=== PATIENT | male | born 1960 | race Caucasian/White ===

== ENCOUNTER → 2017-03-04 | Outpatient (CLI) | payer BC ==
[2017-03-04 09:47] LABS: CH 29.9; CHCM 34.4; HCT 46.5 % (39.0-53.0); HDW 2.98; HGB 15.5 gm/dL (13.0-17.5); MCH 29.1 pg (25.0-35.0); MCHC 33.3 g/dL (31.0-37.0); MCV 87.5 fL (80.0-100.0); Mean Platelet Volume 8.2; RBC 5.32 m/uL (4.30-5.90); RDW 14.4 % (11.5-15.5); WBC 8.8 k/uL (3.8-10.6)
[2017-03-04 10:21] LABS: Anion Gap 11 mmol/L; Blood Urea Nitrogen 19 mg/dL (9-20); Carbon Dioxide 26 mmol/L (22-30); Chloride 107 mmol/L (98-107); Non-African American GFR(MDRD) >60 (>60 ml/min/1.73 sqM); Potassium 4.7 mmol/L (3.5-5.1); Sodium 144 mmol/L (137-145)
== END | disposition home or self-care (01) ==
LOC: LABPAT 09:27
PROVIDERS: ATTEND Internal Medicine Interventional Cardiology
DX: Z01.812 Encounter for preprocedural laboratory examination (principal); R94.30 Abnormal result of cardiovascular function study, unspecified
CPT/HCPCS: 80051; 82565; 84520; 85027

== ENCOUNTER 2017-03-30 07:45 | Day surgery (SDC) | payer BC ==
[2017-03-28 08:39] VITALS: BMI 29.4
[~2017-03-30 07:45] MED LIST: ALPRAZolam 0.25 MG TAB PO PRN; ALPRAZolam 0.5 MG TAB PO PRN; ASPIRIN 325 MG TAB PO STA; ATORVASTATIN 80 MG TAB PO STA; NITROGLYCERIN SL TABS 0.4 MG TAB SUBLINGUAL PRN; SODIUM CHLORIDE 0.9% 1,000 ML in EMPTY BAG 1 BAG IV ONE
[2017-03-30 08:02] VITALS: PULSE 72; RESP 20; TEMP 97.8
[2017-03-30] MEDS ORDERED: SODIUM CHLORIDE 0.9% 1,000 ML IV ONE (08:58)
[2017-03-30] MEDS ORDERED: MIDAZOLAM 2 MG/2 ML VIAL IV ONE (09:11)
[2017-03-30] MEDS ORDERED: LIDOCAINE 2% INJ 20 MG/ML SQ ONE (09:17)
[2017-03-30] MEDS ORDERED: HEPARIN SODIUM 1,000 UN/ML (10ML VL) IV ONE (09:28)
[2017-03-30] MEDS ORDERED: VERAPAMIL SYRINGE (5 MG/10 ML) INTRAARTER ONE (09:40)
[2017-03-30] MEDS ORDERED: IOHEXOL 350 MG/ML 125ML BOTTLE INJ ONE (09:41)
[2017-03-30] MEDS ORDERED: RX INFO: IV CONTRAST WAS GIVEN 1 EACH MISC MISCELLANE PRN (09:48)
[2017-03-30] MEDS ORDERED: SODIUM CHLORIDE 0.9% 1,000 ML IV SCH (10:00)
--- NOTE | 2017-03-30 10:22 | LTR ---
Date: Dear Valeriano: Mr. Jesse White underwent a heart catheterization today and that showed mild disease involving the RCA and the circumflex with patent stent in the mid RCA. I want to thank you for allowing me to participate in the in his care and please do not hesitate to call if you have any questions or concerns. MMODL / IJN: [id number] /
--- NOTE | 2017-03-30 10:31 | CC ---
CARDIAC CATHETERIZATION REPORT DATE OF SERVICE: 03/30/2017 . PERFORMING PHYSICIAN: Tee Hunt MD, Tender Coordinator. PROCEDURE PERFORMED: 1. Selective right and left coronary angiogram. 2. Left heart catheterization. 3. Left ventriculography. INDICATION: This is a pleasant 56-year-old, male patient who is known to have coronary artery disease with prior stenting of the RCA, was experiencing exertional dyspnea. He underwent myocardial perfusion imaging stress test and that showed anterior ischemia. In view of that, he was brought today to undergo a heart catheterization. APPROACH: Right radial artery. COMPLICATION: None. LEVEL OF SEDATION: Moderate with sedation length of 32 minutes. PROCEDURE DESCRIPTION: After obtaining an informed consent, the patient was brought to the Cardiac Sfdc Architect. The right radial artery was cannulated using micropuncture technique, the micropuncture wire passed easily. Then I placed a 6-Maltese sheath in the right radial artery. Subsequently I gave the patient 2 mg of verapamil IA and 10,000 units of heparin IV. After that, I did selective right and left coronary angiogram using JR4 and JL3.5 Maltese systems. After that, I did left heart catheterization and LV gram, using 5- Maltese pigtail catheter. The procedure was completed without any complication. SELECTIVE CORONARY ANGIOGRAM: 1. The right coronary artery is stented in the mid portion and the stent is patent. The RCA distally has mild disease only. 2. The left main is angiographically normal. It bifurcates into the left circumflex and left anterior descending artery. 3. The left circumflex is a large caliber vessel and it is a nondominant vessel. The left circumflex in the proximal portion gives rise into a large OM branch which has mild disease only. The circumflex after that is angiographically normal. 4. The left anterior descending artery. The proximal LAD appeared to be angiographically normal. It gives rise into a diagonal branch which seems to be angiographically normal. The mid LAD is angiographically normal and the is angiographically normal. 5. Hemodynamics: The left ventricular end-diastolic pressure was 12 mmHg and no gradient was identified across the aortic valve. 6. Left ventriculography was performed in the MCGRATH projection and using a power injection with left ventricular systolic function is normal with an ejection fraction of 55%. CONCLUSION: 1. Patent stent in the mid right coronary artery with mild disease involving the distal right coronary artery which is a dominant vessel. 2. Normal left main coronary artery. 3. Mild disease involving the left circumflex. 4. Normal left anterior descending artery. 5. Normal left ventricular end-diastolic pressure. 6. Normal left ventricular systolic function. POSTPROCEDURE MANAGEMENT: Medical treatment and follow up with the patient. ROSELYN / ARUN: [id number] /
[2017-03-30 17:33] VITALS: BP 128/70
== END 2017-03-30 17:39 | disposition home or self-care (01) ==
LOC: CATHCVL 07:45
PROVIDERS: ATTEND Internal Medicine Interventional Cardiology
DX: I25.10 Atherosclerotic heart disease of native coronary artery without angina pectoris (principal); R06.09 Other forms of dyspnea; I10 Essential (primary) hypertension; E78.5 Hyperlipidemia, unspecified; Z82.49 Family history of ischemic heart disease and other diseases of the circulatory system; Z79.899 Other long term (current) drug therapy; Z87.891 Personal history of nicotine dependence; Z95.5 Presence of coronary angioplasty implant and graft
CPT/HCPCS: 93458; 99152; 99153; C1769; C1894; J2001; J2250; J1644; Q9967

== ENCOUNTER → 2018-06-29 | Outpatient (CLI) | payer BC ==
--- NOTE | 2018-06-29 08:56 | CT ---
EXAMINATION TYPE: CT hand RT wo con DATE OF EXAM: 06/29/2018 COMPARISON: None HISTORY: 57-year-old male Right thumb pain. Prior surgery. TECHNIQUE: Contiguous axial scanning of the right hand without IV contrast. Coronal and sagittal samuel nstructions performed. 3-D reconstructions generated on a dedicated independent workstation. CT DLP: 179.5 mGycm Automated exposure control for dose reduction was used. FINDINGS: There are degenerative changes throughout the hand including the distal radioulnar joint, and through out the carpus, triscaphe joint, and especially at the third and fourth MCP joints with relatively se dc loss of cartilage and joint space at the third MCP joint and joint subluxation. Degenerative elsy nges are characterized by joint space narrowing, marginal spurring, and subcortical/subchondral cysti c change. There is mild degenerative change at the first CMC joint. Additional degenerative change at the DIP j oints particularly the third DIP joint. There is plate and screw fixation across the first MCP joint which appears degenerated and unfused at this time. There are no soft tissue calcifications or synovial calcification seen. No obvious tenosynovitis by C T. IMPRESSION: 1. PLATE AND SCREW FIXATION ACROSS THE FIRST MCP JOINT WHICH APPEARS DEGENERATED AND UNFUSED AT THIS TIME. NO EVIDENT HARDWARE COMPLICATION. 2. ADDITIONAL DEGENERATIVE CHANGES AT THE BASE OF THE THUMB, AT THE DRUJ, THROUGHOUT THE CARPUS, AT S OME OF THE MCP JOINTS AND AT SOME OF THE DIP JOINTS, ESPECIALLY THE THIRD FINGER. DEGENERATIVE CHANGE S ARE CHARACTERIZED BY JOINT SPACE NARROWING, MARGINAL SPURRING, AND SUBCORTICAL/SUBCHONDRAL CYST FOR MATION. UNCLEAR IF THIS RELATES TO OLD INFLAMMATORY ARTHROPATHY GIVEN INVOLVEMENT OF THE CARPUS AND M CP JOINTS OR AN UNUSUAL PATTERN OF OSTEOARTHROSIS. FURTHER CLINICAL CORRELATION RECOMMENDED.
== END ==
LOC: RADCTMAIN 07:08
PROVIDERS: ATTEND Orthopaedic Surgery Hand Surgery
DX: M19.041 Primary osteoarthritis, right hand (principal)

== ENCOUNTER 2023-05-09 05:56 | Day surgery (SDC) | payer OTHER ==
[2023-05-09] MEDS ORDERED: ASPIRIN 325 MG TAB PO STA (06:02)
[2023-05-09] MEDS ORDERED: NITROGLYCERIN SL TABS 0.4 MG TAB SUBLINGUAL PRN ×2 (06:02→08:26)
[2023-05-09] MEDS ORDERED: HEPARIN SODIUM,PORCINE 10,000 UNIT in SODIUM CHLORIDE 0.9% 1,000 ML IRRIGATION PRN (06:02)
[2023-05-09] MEDS ORDERED: HEPARIN SODIUM,PORCINE (1 ML) 2,500 UNIT in SODIUM CHLORIDE 0.9% 250 ML IRRIGATION PRN (06:02)
[2023-05-09] MEDS ORDERED: ALPRAZolam 0.5 MG TAB PO PRN (06:02)
[2023-05-09] MEDS ORDERED: ALPRAZolam 0.25 MG TAB PO PRN (06:02)
[2023-05-09] MEDS ORDERED: ATORVASTATIN 80 MG TAB PO STA (06:02)
[2023-05-09] MEDS: SODIUM CHLORIDE 0.9% 1,000 ML in EMPTY BAG 1 BAG IV SCH ×2 (06:30→17:32)
[2023-05-09 06:35] LABS: Basophils % (A) 0 %; Eosinophils # (A) 0.2 k/uL (0-0.7); Eosinophils % (A) 2 %; HCT 40.4 % (39.0-53.0); HGB 13.5 gm/dL (13.0-17.5); Lymphocytes # (A) 2.7 k/uL (1.0-4.8); Lymphocytes % (A) 26 %; MCH 29.5 pg (25.0-35.0); MCHC 33.5 g/dL (31.0-37.0); MCV 88.2 fL (80.0-100.0); Mean Platelet Volume 7.8; Monocytes # (A) 0.5 k/uL (0-1.0); Monocytes % (A) 5 %; Neutrophils # (A) 6.7 k/uL (1.3-7.7); Neutrophils % (A) 65 %; Platelet Count 289 k/uL (150-450); RBC 4.58 m/uL (4.30-5.90); RDW 13.3 % (11.5-15.5); WBC 10.3 k/uL (3.8-10.6)
[2023-05-09 06:47] LABS: African American GFR (CKD) >90 (>60 ml/min/1.73 sqM); Anion Gap 8 mmol/L; Blood Urea Nitrogen 30 mg/dL (9-20); Calcium 9.1 mg/dL (8.4-10.2); Carbon Dioxide 24 mmol/L (22-30); Chloride 106 mmol/L (98-107); Glucose 102 mg/dL (74-99); Non-African American GFR(CKD) >90 (>60 ml/min/1.73 sqM); Potassium 3.9 mmol/L (3.5-5.1); Sodium 138 mmol/L (137-145)
[2023-05-09] MEDS ORDERED: LIDOCAINE 1% INJ 10MG/ML (20 ML MDV) ONE (07:14)
[2023-05-09] MEDS ORDERED: VERAPAMIL 2.5 MG/ML 2 ML AMP ONE (07:14)
[2023-05-09] MEDS ORDERED: HEPARIN SODIUM 1,000 UN/ML (10ML VL) ONE (07:29)
[2023-05-09] MEDS ORDERED: MIDAZOLAM 2 MG/2 ML VIAL IVP ONE (07:35)
[2023-05-09] MEDS ORDERED: LIDOCAINE 2% (PF) 20 MG/ML 5 ML VIAL SQ ONE (07:38)
[2023-05-09] MEDS ORDERED: VERAPAMIL SYRINGE (5 MG/10 ML) INTRAARTER ONE (07:42)
[2023-05-09] MEDS: HEPARIN SODIUM 1,000 UN/ML (10ML VL) IV ONE ×3 (07:44→08:24)
[2023-05-09] MEDS ORDERED: niCARdipine 25 MG/10 ML VIAL ONE (08:08)
[2023-05-09] MEDS: NITROGLYCERIN 1000MCG/10ML SYRINGE INTRACORON ONE ×2 (08:09→08:19)
[2023-05-09] MEDS ORDERED: niCARdipine Syringe (1,000 mcg/10 mL) INTRACORON ONE (08:10)
[2023-05-09] MEDS ORDERED: IOPAMIDOL-370 100ML BTL INJ ONE ×2 (08:21)
[2023-05-09] MEDS ORDERED: HYDROcodone/APAP 7.5-325MG 1 EACH TAB PO PRN (08:25)
[2023-05-09] MEDS ORDERED: ALBUTEROL NEBULIZED 2.5 MG/3 ML INHALATION PRN (08:25)
[2023-05-09] MEDS ORDERED: diphenhydrAMINE 50 MG CAP PO PRN (08:25)
[2023-05-09] MEDS ORDERED: IPRATROPIUM 0.5 MG/2.5 ML NEBU INHALATION PRN (08:25)
[2023-05-09] MEDS ORDERED: MAG HYDROX/AL HYDROX/SIMETH 30 ML CUP PO PRN (08:26)
[2023-05-09] MEDS ORDERED: ZOLPIDEM 5 MG TAB PO PRN (08:26)
[2023-05-09] MEDS ORDERED: ATROPINE SULFATE 0.1 MG/ML 10ML SYRINGE IV PRN (08:26)
[2023-05-09] MEDS ORDERED: RX INFO: IV CONTRAST WAS GIVEN 1 EACH MISC MISCELLANE PRN (08:26)
[2023-05-09] MEDS ORDERED: SODIUM CHLORIDE 0.9% 1,000 ML in EMPTY BAG 1 BAG IV SCH (08:30)
--- NOTE | 2023-05-09 08:32 | P.PCN ---
Date of Procedure: 05/09/23 Operative Findings: CARDIAC CATHETERIZATION AND PERCUTANEOUS CORONARY INTERVENTION PERFORMING PHYSICIAN: Tee Hunt MD, [facility] PROCEDURE PERFORMED: 1. Selective right and left coronary angiogram 2. Left heart catheterization 3. Successful stenting of distal RCA using 3.0 x 18 mm Xience EDI with an excellent angiographic results 4. Successful balloon angioplasty of the mid RCA using 3.5 mm noncompliant balloon with an excellent angiographic results 5. Adjunctive use of intravascular imaging INDICATION: The patient is a 62-year-old gentleman with CAD and prior stenting of the RCA a nd LCx and LAD who underwent recently myocardial perfusion imaging stress a showed moderate area of reversibility inferiorly and he was experiencing symptoms of shortness of breath with exertion COMPLICATION: None APPROACH: Right radial artery LEVEL OF SEDATION: Moderate with the sedation time off 45 minutes PROCEDURE DESCRIPTION: After obtaining an informed consent the patient was brought to the cardiac crown and bridge dental lab technician. The right radial artery was cannulated using micropuncture technique under ultrasound guidance and the micropuncture wire passed easily then I placed 6- Bhutanese sheath at the right radial artery. I gave the patient 2 mg of verapamil intra-arterial and 5000 use of heparin intravenous. Selective right and left coronary angiogram performed using JR4 and JL 3.5 catheters and left heart catheterization was performed using 6-Bhutanese pigtail catheter. After that I did intervene on the right coronary artery. The procedure was completed was no complication SELECTIVE CORONARY ANGIOGRAM: The right coronary artery: Large caliber vessel and a dominant vessel with diet in-stent restenosis and also tight lesion distally appeared to be de nishant lesion Left main: Has mild disease only. Bifurcates into one LCx and LAD The left circumflex: Large caliber vessel. Proximally gives rise into an OM which is a large caliber vessel stented and the stent is patent. Distally gives rises into an oh into which appeared to be angiographically normal The left anterior descending artery: Large caliber vessel. The LAD stented in the midportion and the stent is patent HEMODYNAMICS: The LVEDP was 12 mmHg was no significant gradient across aortic valve PCI OF THE RCA: Anticoagulation was initiated using heparin with continuous ACT monitoring. Engaging the right was performed using JR4 guiding catheter. I did wire it using a run-through wire. Intravascular ultrasound was performed and showed a diameter of the RCA about 3 mm distally and 3.5 in the midportion. The artery wasn't very calcified. Predilatation was performed using 3 mm noncompliant balloon distally then I deployed 30 by 18 mm stent distally. After that I did direct irritation of the stent in the mid LAD using 3.5 mm noncompliant balloon. Final angiogram showed excellent angiographic results and the procedure was completed was no complication CONCLUSION: Severe in-stent restenosis of the RCA and severe disease involving de nishant lesion in the RCA as well. I performed successful balloon angioplasty and st enting as described above Patent stent in the first obtuse marginal branch of the left circumflex Patent stent in the LAD Normal left-sided filling pressure POSTPROCEDURE MANAGEMENT: 1. Dual antiplatelet therapy using aspirin and Effient for at least 6 month 2. Aggressive cholesterol control 3. Follow-up with the patient
[2023-05-09] MEDS ORDERED: NON FORMULARY DRUG (Magnesium Citrate [Magnesium Citrate] 125 MG Capsule) PO SCH (09:00)
[2023-05-09] MEDS ORDERED: NON FORMULARY DRUG (Turmeric Root Extract [Turmeric] 500 MG Tablet) PO SCH (09:00)
[2023-05-09] MEDS ORDERED: NON FORMULARY DRUG (Omega-3 Acid Ethyl Esters [Lovaza] 1 GM Capsule) PO SCH (09:00)
[2023-05-09] MEDS ORDERED: NON FORMULARY DRUG (Glucosam/Chon-Msm1/C/Mang/Bosw [Glucosamine-Chondroitin-Msm Tb] 1 EACH PO SCH (09:00)
[2023-05-09] MEDS ORDERED: PRASUGREL 10 MG TAB PO SCH (09:00)
[2023-05-09] MEDS: ASCORBIC ACID 500 MG TAB PO SCH ×2 (10:29→20:04)
[2023-05-09] MEDS: MULTIVITAMINS, THERA 1 EACH TAB PO SCH (10:29)
[2023-05-09] MEDS: ISOSORBIDE MONONITRATE ER 30 MG TAB.ER.24H PO SCH (10:29)
[2023-05-09] MEDS: CYANOCOBALAMIN 500 MCG TAB PO SCH (10:29)
[2023-05-09] MEDS: amLODIPine 5 MG TAB PO SCH (10:29)
[2023-05-09] MEDS: ZINC SULFATE 220 MG CAP PO SCH (10:29)
[2023-05-09] MEDS: CHOLECALCIFEROL 25 MCG (1000 IU) TABLET PO SCH (10:29)
[2023-05-09] MEDS: VITAMIN E (DL,TOCOPHERYL ACET) 400 UNIT (180 MG) CAP PO SCH (10:30)
[2023-05-09] MEDS: ASPIRIN 81 MG PO SCH (10:30)
[2023-05-09] MEDS: SYMBICORT 80-4.5 MCG INHALER INHALATION SCH ×2 (13:49→21:04)
[2023-05-09] MEDS ORDERED: NORTRIPTYLINE 25 MG CAP PO SCH (21:00)
[2023-05-09] MEDS ORDERED: ACETAMINOPHEN TAB 500 MG TAB PO SCH (21:00)
[2023-05-09] MEDS ORDERED: EZETIMIBE 10 MG TAB PO SCH (21:00)
[2023-05-09] MEDS ORDERED: MONTELUKAST 10 MG TAB PO SCH (21:00)
[2023-05-10] MEDS: SODIUM CHLORIDE 0.9% 1,000 ML in EMPTY BAG 1 BAG IV SCH (04:55)
[2023-05-10 07:28] LABS: African American GFR (CKD) >90 (>60 ml/min/1.73 sqM); Non-African American GFR(CKD) >90 (>60 ml/min/1.73 sqM)
[2023-05-10 07:45] VITALS: BP 117/69; PULSE 68; RESP 17; TEMP 97.6
--- NOTE | 2023-05-10 08:27 | P.DS ---
Providers Attending physician: Tee Hunt Consults: 05/09/23 08:26 Consult Physician Routine Consulting Provider: [facility] Consult Reason/Comments: Post Interventional patient Do you want consulting provider notified?: Already Contacted Primary care physician: Valeriano [facility] Course: The patient is a pleasant 62-year-old gentleman who underwent yesterday successful stenting of the right coronary artery with a good angiographic results and was no complication. The patient was seen and evaluated this morning. He is asymptomatic and he is hemodynamically stable. The patient is going to be discharged home on dual antiplatelet therapy. I will follow-up with the patient next week in the office Plan - Discharge Summary Discharge Rx Participant: No New Discharge Prescriptions: Continue Hydrocodone/Acetaminophen [Garden 7.5-325] 1 tab PO Q8H PRN PRN Reason: Pain Cholecalciferol [Vitamin D3 (25 Mcg = 1000 Iu)] 2,000 unit PO DAILY Budesonide/Formoterol Fumarate [Symbicort 80-4.5 Mcg Inhaler] 2 puff INHALATION BID Albuterol Sulfate [Proair Respiclick] 1 puff PO Q4H PRN PRN Reason: Shortness Of Breath Aspirin [Adult Low Dose Aspirin EC] 81 mg PO DAILY amLODIPine [Norvasc] 5 mg PO DAILY Magnesium Citrate 250 mg PO DAILY Cyanocobalamin (Vitamin B-12) [Vitamin B-12] 1,000 mcg PO DAILY Zinc Gluconate [Zinc] 1 tab PO DAILY Tiotropium 2.5 Mcg/Puff [Spiriva Respimat 2.5 Mcg] 4 puff INHALATION DAILY PRN PRN Reason: Shortness Of Breath Ezetimibe [Zetia] 10 mg PO HS Ascorbic Acid [Vitamin C] 1,000 mg PO BID Isosorbide Mononitrate [Isosorbide Mononitrate ER] 30 mg PO DAILY Glucosam/Suhail-Msm1/C/Edgar/Bosw [Havqjequoiw-Oavlgfkhnjd-RVH Tb] 1 each PO BID [place]-3 Acid Ethyl Esters [Lovaza] 1 gm PO BID Acetaminophen [Tylenol Arthritis] 1,300 mg PO HS diphenhydrAMINE [Benadryl] 50 mg PO HS PRN PRN Reason: Insomnia Montelukast Sodium [Singulair] 10 mg PO HS Turmeric Root Extract [Turmeric] 500 mg PO DAILY Multivitamins, Thera [Multivitamin (formulary)] 1 tab PO DAILY Ibuprofen 600 mg PO BID PRN PRN Reason: Pain Prasugrel [Effient] 10 mg PO DAILY #90 tablet Vitamin E (Dl,Tocopheryl Acet) [Vitamin E (400 Iu = 180 mg)] 400 unit PO DAILY Nortriptyline HCl [Pamelor] 75 mg PO HS Discharge Medication List Cholecalciferol [Vitamin D3 (25 Mcg = 1000 Iu)] 2,000 unit PO DAILY 03/03/16 [History] Hydrocodone/Acetaminophen [Garden 7.5-325] 1 tab PO Q8H PRN 03/03/16 [History] Albuterol Sulfate [Proair Respiclick] 1 puff PO Q4H PRN 03/28/17 [History] Aspirin [Adult Low Dose Aspirin EC] 81 mg PO DAILY 03/28/17 [History] Budesonide/Formoterol Fumarate [Symbicort 80-4.5 Mcg Inhaler] 2 puff INHALATION BID 03/28/17 [History] Cyanocobalamin (Vitamin B-12) [Vitamin B-12] 1,000 mcg PO DAILY 04/28/17 [History] Magnesium Citrate 250 mg PO DAILY 04/28/17 [History] amLODIPine [Norvasc] 5 mg PO DAILY 04/28/17 [History] Ascorbic Acid [Vitamin C] 1,000 mg PO BID 08/06/22 [History] Ezetimibe [Zetia] 10 mg PO HS 08/06/22 [History] Ibuprofen 600 mg PO BID PRN 08/06/22 [History] Montelukast Sodium [Singulair] 10 mg PO HS 08/06/22 [History] Multivitamins, Thera [Multivitamin (formulary)] 1 tab PO DAILY 08/06/22 [History] Tiotropium 2.5 Mcg/Puff [Spiriva Respimat 2.5 Mcg] 4 puff INHALATION DAILY PRN 08/06/22 [History] Turmeric Root Extract [Turmeric] 500 mg PO DAILY 08/06/22 [History] Zinc Gluconate [Zinc] 1 tab PO DAILY 08/06/22 [History] diphenhydrAMINE [Benadryl] 50 mg PO HS PRN 08/06/22 [History] Prasugrel [Effient] 10 mg PO DAILY #90 tablet 08/10/22 [Rx] Isosorbide Mononitrate [Isosorbide Mononitrate ER] 30 mg PO DAILY 08/17/22 [History] Acetaminophen [Tylenol Arthritis] 1,300 mg PO HS 05/05/23 [History] Glucosam/Suhail-Msm1/C/Edgar/Bosw [Ellceedgwwy-Tfayrqrhlbf-LDZ Tb] 1 each PO BID 05/05/23 [History] Nortriptyline HCl [Pamelor] 75 mg PO HS 05/05/23 [History] [place]-3 Acid Ethyl Esters [Lovaza] 1 gm PO BID 05/05/23 [History] Vitamin E (Dl,Tocopheryl Acet) [Vitamin E (400 Iu = 180 mg)] 400 unit PO DAILY 05/05/23 [History] Follow up Appointment(s)/Referral(s): Tee Hunt MD [STAFF PHYSICIAN] - 1 Week Patient Instructions/Handouts: Moderate Sedation (DC), After Radial Heart Catheterization (GEN) Activity/Diet/Wound Care/Special Instructions: NO DRIVING FOR TWO DAYS. OK TO SHOWER TOMORROW BUT NO BATHS, SWIMMING, SOAKING PUNCTURE SITE IN STANDING WATER (IE:DOING DISHES) FOR FIVE DAYS TO AVOID RISK OF INFECTION. SIGNS OF INFECTION IE: FEVER, RASH, UNUSUAL SWELLING OR HARD KNOT, DRAINAGE FROM SITE CONTACT DOCTOR TO BE EVAULATED. IF PUNCTURE SITE BLEEDS, APPLY FIRM DIRECT PRESSURE AND GO TO ER. DO NOT DRIVE SELF. MEDICATION DIRECTED BY PROVISIONING ANALYST. NO LIFTING GREATER THAN 5 LBS FOR FIVE DAYS, AVOID PUSHING PULLING FOR FIVE DAYS ALSO.
[2023-05-10] MEDS: ZINC SULFATE 220 MG CAP PO SCH (08:50)
[2023-05-10] MEDS: MULTIVITAMINS, THERA 1 EACH TAB PO SCH (08:50)
[2023-05-10] MEDS: VITAMIN E (DL,TOCOPHERYL ACET) 400 UNIT (180 MG) CAP PO SCH (08:50)
[2023-05-10] MEDS: CHOLECALCIFEROL 25 MCG (1000 IU) TABLET PO SCH (08:50)
[2023-05-10] MEDS: ISOSORBIDE MONONITRATE ER 30 MG TAB.ER.24H PO SCH (08:50)
[2023-05-10] MEDS: CYANOCOBALAMIN 500 MCG TAB PO SCH (08:50)
[2023-05-10] MEDS: ASCORBIC ACID 500 MG TAB PO SCH (08:50)
[2023-05-10] MEDS: amLODIPine 5 MG TAB PO SCH (08:50)
[2023-05-10] MEDS: ASPIRIN 81 MG PO SCH (08:50)
[2023-05-10] MEDS: SYMBICORT 80-4.5 MCG INHALER INHALATION SCH (09:06)
== END 2023-05-10 09:45 | disposition home or self-care (01) ==
LOC: CATHCVL 05:56 → 6NMEDSUR 08:35 → CATHCVL 05-10 09:45
PROVIDERS: ATTEND Internal Medicine Interventional Cardiology
DX: I25.10 Atherosclerotic heart disease of native coronary artery without angina pectoris (principal); I10 Essential (primary) hypertension; E78.5 Hyperlipidemia, unspecified; Z95.5 Presence of coronary angioplasty implant and graft; Z79.899 Other long term (current) drug therapy; Z79.1 Long term (current) use of non-steroidal anti-inflammatories (NSAID)
CPT/HCPCS: 94640; 92978; 93458; 76937; 80048; 82565; 85025; 99152; 99153 ×2; C9600; C1887; C1769 ×2; C1894; C1753; C1874; C1725 ×2; J2250; J1644; Q9967; J2001; J2305

== ENCOUNTER → 2023-09-12 | Outpatient (CLI) | payer OTHER ==
--- NOTE | 2023-09-12 11:28 | CT ---
Exam: CT Chest without contrast. Date: 09/12/2023. Comparison: None History: Cough and congestion. Technique: CT examination of the chest was performed without contrast. Coronal and sagittal reformats were performed. CT dose lowering techniques were used, to include: automated exposure control, adjus tment for patient size, and/or use of iterative reconstruction. FINDINGS: Mediastinum and Rosio: There is no axillary, mediastinal or hilar lymphadenopathy. Pleural and Pericardial spaces: There are no pleural or pericardial effusions. Upper Abdomen: There is mild diffuse decreased attenuation of liver disease compatible fatty liver in filtration. Left adrenal nodule is compatible with an adenoma measuring 2.5 cm in diameter. The right adrenal adenoma. Cardiovascular: The thoracic aorta is normal in size. There are moderate patchy coronary artery calci fications. Lung Parenchyma and Airways: There is mild upper lobe predominant centrilobular and paraseptal emphys maged. The lungs otherwise appear clear. Bones: No fracture or aggressive osseous lesion. IMPRESSION: 1. No acute abnormality in the chest. 2. Mild emphysema. 3. Bilateral adrenal adenomas. 4. Hepatic steatosis. 5. Coronary artery calcifications. There also appears to be coronary stents.
== END | disposition home or self-care (01) ==
LOC: RADCTMAIN 08:08
PROVIDERS: ATTEND Internal Medicine
DX: D35.01 Benign neoplasm of right adrenal gland (principal); D35.02 Benign neoplasm of left adrenal gland; I25.10 Atherosclerotic heart disease of native coronary artery without angina pectoris; K76.0 Fatty (change of) liver, not elsewhere classified; J43.2 Centrilobular emphysema; R05.3 Chronic cough; R06.02 Shortness of breath; R09.89 Other specified symptoms and signs involving the circulatory and respiratory systems
CPT/HCPCS: 71250

== ENCOUNTER → 2023-10-28 | Outpatient (CLI) | payer OTHER ==
[2023-10-28 23:51] LABS: Alternaria alternata IgE <0.10 kU/L; Aspergillus fumagatus IgE <0.10 kU/L; Birch IgE 0.15 kU/L; Cat Epith & Dander IgE <0.10 kU/L; Cladosporian herbarum IgE <0.10 kU/L; Cockroach IgE <0.10 kU/L; Dermato. farinae IgE <0.10 kU/L; Dog Dander IgE <0.10 kU/L; Elm IgE 0.28 kU/L; Maple (Box Elder) IgE 1.49 kU/L; Ragweed,Common IgE 0.78 kU/L; Red Top (Bentgrass) IgE 3.96 kU/L
== END | disposition home or self-care (01) ==
LOC: LABWHC1 09:47
PROVIDERS: ATTEND Internal Medicine Critical Care Medicine
DX: R06.09 Other forms of dyspnea (principal)
CPT/HCPCS: 36415; 82785; 85008; 86003

== ENCOUNTER → 2023-11-14 | Day surgery (SDC) | payer OTHER ==
[2023-11-11 09:57] VITALS: BMI 31.9
[~2023-11-14] MED LIST changes: -ALPRAZolam 0.25 MG TAB PO PRN; -ALPRAZolam 0.5 MG TAB PO PRN; -ASPIRIN 325 MG TAB PO STA; -ATORVASTATIN 80 MG TAB PO STA; +LIDOCAINE 1% INJ 10MG/ML (20 ML MDV) ONE; +MIDAZOLAM 2 MG/2 ML VIAL ONE; -NITROGLYCERIN SL TABS 0.4 MG TAB SUBLINGUAL PRN; +PROPOFOL 10 MG/ML 20 ML VIAL IV ONE; -SODIUM CHLORIDE 0.9% 1,000 ML in EMPTY BAG 1 BAG IV ONE; +fentaNYL (PF) 50 MCG/ML 2 ML AMP ONE
[2023-11-14 11:53] LABS: Glucose,Whole Blood 133 mg/dL (70-110)
[2023-11-14 11:56] VITALS: TEMP 97.2
[2023-11-14] MEDS: LACTATED RINGERS 1,000 ML IV SCH (11:58)
--- NOTE | 2023-11-14 12:37 | P.PCN ---
Date of Procedure: 11/14/23 Preoperative Diagnosis: Shortness of breath Occupational lung disease, possible asthma Postoperative Diagnosis: Tracheobronchomalacia Copious respiratory secretions and mucous retention/plugging Procedure(s) Performed: Bronchoscopy, airway inspection, therapeutic airway suctioning, bronchoalveolar lavage Anesthesia: MAC Surgeon: George Bragg Estimated Blood Loss (ml): 0 Pathology: other Condition: stable Disposition: same day Operative Findings: This is a flexible bronchoscopy that was done in the endoscopy suite. The patient was placed on a fullface mask with 10 L of oxygen. Anesthetic agent was being administered by anesthesia at the bedside. After achieving adequate sedation, the flexor bronchoscope was introduced through the right nostril and it was advanced into the upper airway. Examination of the upper airway showed collapsibility of the upper airways consistent with obstructive sleep apnea. This was dynamic obstruction. The posterior oropharynx, larynx, epiglottis, vallecula and the vocal cords were all within normal limits. A total of 2 cc of 1% lidocaine was applied to the vocal cord and following that the bronchoscope was passed into the upper trachea. Immediately, it was obvious that the patient had severe tracheomalacia with dynamic obstruction and near complete occlusion of the airway/narrowing of the tracheal lumen upon exhalation and coughing. There was copious amount of respiratory secretions that were creamy beige in color that was encountered throughout the trachea and more secretions were present in the lower lobes bilaterally. Therapeutic airway suctioning was done. Mucous plugs were taken out without any major difficulties. Airway inspection was completed and the visualized airways include the bilateral mainstem bronchi, right upper lobe bronchus, bronchus diabetes, right middle and right lower lobe bronchus the lungs with a very send segments on the right and examination of the left and throughout the left upper lobe bronchus and left lower lobe bronchus and the various 8 segments on the left. As mentioned, there was copious amount of mucus bloody respiratory secretions that were suctioned out. There was tracheobronchomalacia involving the entire airways. No mucosal abnormalities. No evidence of endobronchial tumors or foreign bodies. After completing the therapeutic airway suctioning, the bronchoscope was advanced to the right lower lobe and a bronchial lavage was done. A total of 60 cc of fluid was infused and 30 cc were aspirated or other major difficulties. The patient tolerated the procedure well. Bronchoscope was removed and the patient was transferred to recovery in stable condition. The bronchial lavage from the right lower lobe will be sent for microbial cultures and analysis.
[2023-11-14 13:29] VITALS: BP 106/67; PULSE 83; RESP 20
[2023-11-14 13:32] LABS: Glucose,Whole Blood 125 mg/dL (70-110)
[2023-11-15 04:41] LABS: Appearance,BF Cloudy (Clear); RBC, Body Fluid 2625 /UL (0-2000)
[2023-11-15 11:25] LABS: Nucleated Cells, Body Fluid 713 /UL
== END ==
LOC: ORWHC2ENDO 11:01
PROVIDERS: ATTEND Internal Medicine Critical Care Medicine
DX: J39.8 Other specified diseases of upper respiratory tract (principal)
CPT/HCPCS: 87798 ×3; 87496; 87498; 87529; 88108; 88305; 89050; 87502; 87634; 87070; 87205; 87116; 87102; 87077; 87186; 87206; 87635; 31624; J2250; J2001; J3010; J2704

== ENCOUNTER 2023-11-17 18:54 | Emergency (ER) | payer OTHER ==
[2023-11-17 19:25] VITALS: TEMP 97.6
[2023-11-17 20:12] LABS: Basophils % (A) 0 %; Eosinophils % (A) 0 %; HCT 42.4 % (39.0-53.0); HGB 13.6 gm/dL (13.0-17.5); Lymphocytes # (A) 1.9 k/uL (1.0-4.8); Lymphocytes % (A) 10 %; MCH 28.7 pg (25.0-35.0); MCHC 32.1 g/dL (31.0-37.0); MCV 89.4 fL (80.0-100.0); Mean Platelet Volume 7.9; Monocytes % (A) 5 %; Neutrophils # (A) 15.6 k/uL (1.3-7.7); Neutrophils % (A) 84 %; Platelet Count 279 k/uL (150-450); RBC 4.74 m/uL (4.30-5.90); RDW 13.1 % (11.5-15.5); WBC 18.7 k/uL (3.8-10.6)
[2023-11-17 20:23] LABS: ALT 56 U/L (4-49); AST 31 U/L (17-59); African American GFR (CKD) >90 (>60 ml/min/1.73 sqM); Albumin 4.3 g/dL (3.5-5.0); Alkaline Phosphatase 75 U/L (38-126); Anion Gap 11 mmol/L; Blood Urea Nitrogen 38 mg/dL (9-20); Calcium 9.4 mg/dL (8.4-10.2); Carbon Dioxide 20 mmol/L (22-30); Chloride 103 mmol/L (98-107); Glucose 235 mg/dL (74-99); Non-African American GFR(CKD) >90 (>60 ml/min/1.73 sqM); Potassium 4.8 mmol/L (3.5-5.1); Sodium 134 mmol/L (137-145); Total Bilirubin 0.6 mg/dL (0.2-1.3); Total Protein 6.9 g/dL (6.3-8.2)
--- NOTE | 2023-11-17 20:27 | ED ---
Head Injury HPI - General Chief complaint: Head Injury Stated complaint: head injury Time Seen by Provider: 11/17/23 19:22 Source: patient, RN notes reviewed Mode of arrival: ambulatory Limitations: no limitations - History of Present Illness Initial comments: 62-year-old male on Effient presenting with back pain status post trauma injury involving 400 pound metal sheet falling onto his middle back and head 3 hours ago. States the metal sheet was leaning up against the wall and he was painting at, however it fell onto his mid back while he was laying down and also struck his forehead. He did not lose consciousness. States he is having mid back pain and tenderness however denies any numbness or tingling of the extremities. He is able to weight-bear. Denies vision changes, weakness, numbness, tingling. Denies other injuries. He is concerned for internal bleed due to the weight of the metal sheet. States he has old bruises diffusely across his body since being on the Effient - Related Data Home Medications Medication Instructions Recorded Confirmed Cholecalciferol [Vitamin D3 (25 2,000 unit PO DAILY 03/03/16 11/14/23 Mcg = 1000 Iu)] Hydrocodone/Acetaminophen [[place] 1 tab PO Q8H PRN 03/03/16 11/14/23 7.5-325] Albuterol Sulfate [Proair 1 puff PO Q4H PRN 03/28/17 11/14/23 Respiclick] Aspirin [Adult Low Dose Aspirin EC] 81 mg PO DAILY 03/28/17 11/14/23 Budesonide/Formoterol Fumarate 2 puff INHALATION BID 03/28/17 11/14/23 [Symbicort 80-4.5 Mcg Inhaler] Cyanocobalamin (Vitamin B-12) 1,000 mcg PO DAILY 04/28/17 11/14/23 [Vitamin B-12] Magnesium Citrate 250 mg PO DAILY 04/28/17 11/14/23 amLODIPine [Norvasc] 5 mg PO DAILY 04/28/17 11/14/23 Ascorbic Acid [Vitamin C] 1,000 mg PO BID 08/06/22 11/14/23 Ezetimibe [Zetia] 10 mg PO HS 08/06/22 11/14/23 Ibuprofen 600 mg PO BID PRN 08/06/22 11/14/23 Montelukast Sodium [Singulair] 10 mg PO HS 08/06/22 11/14/23 Multivitamins, Thera [Multivitamin 1 tab PO DAILY 08/06/22 11/14/23 (formulary)] Tiotropium 2.5 Mcg/Puff [Spiriva 4 puff INHALATION DAILY PRN 08/06/22 11/14/23 Respimat 2.5 Mcg] Turmeric Root Extract [Turmeric] 500 mg PO DAILY 08/06/22 11/14/23 Zinc Gluconate [Zinc] 1 tab PO DAILY 08/06/22 11/14/23 diphenhydrAMINE [Benadryl] 50 mg PO HS PRN 08/06/22 11/14/23 Isosorbide Mononitrate [Isosorbide 30 mg PO DAILY 08/17/22 11/14/23 Mononitrate ER] Acetaminophen [Tylenol Arthritis] 1,300 mg PO HS 05/05/23 11/14/23 Glucosam/Suhail-Msm1/C/Edgar/Bosw 1 each PO BID 05/05/23 11/14/23 [Hgwxojfnlbx-Byopxwnibug-DXI Tb] Nortriptyline HCl [Pamelor] 75 mg PO HS 05/05/23 11/14/23 Mcclure-3 Acid Ethyl Esters [Lovaza] 1 gm PO BID 05/05/23 11/14/23 Vitamin E (Dl,Tocopheryl Acet) 400 unit PO DAILY 05/05/23 11/14/23 [Vitamin E (400 Iu = 180 mg)] predniSONE [Deltasone] 20 mg PO DAILY 11/11/23 11/14/23 Previous Rx's Medication Instructions Recorded Prasugrel [Effient] 10 mg PO DAILY #90 tablet 08/10/22 Allergies/Adverse reactions: Allergies Allergy/AdvReac Type Severity Reaction Status Date / Time venom-honey bee Allergy Swelling Verified 11/17/23 19:18 [bee venom (honey bee)] Review of Systems ROS Statement: Those systems with pertinent positive or pertinent negative responses have been documented in the HPI. ROS Other: All systems not noted in ROS Statement are negative. Past Medical History Past Medical History: Asthma, Coronary Artery Disease (CAD), Chest Pain / Angina , Hyperlipidemia, Hypertension, Osteoarthritis (OA), Seizure Disorder Additional Past Medical History / Comment(s): seizure 1998 post closed head injury, no meds now. Allergy induced asthma, chest pain on exertion. SINUS PROBLEMS. cough since he has been on inhalers. scattered bruises History of Any Multi-Drug Resistant Organisms: None Reported Past Surgical History: Heart Catheterization With Stent, Hernia Repair, Ort hopedic Surgery Additional Past Surgical History / Comment(s): vasectomy, desire carpal tunnel, arthroscopy desire knees, tendon repair desire elbows, bone spur removed from left great toe, arthroscopy left shoulder x 2, ganglion cyst left wrist. RT SHOULDER SX, BILAT ING. HERNIA SX,x3 COLONOSCOPY, sinus surgery, rt thumb joint fusion, then had bone graft due to poor healing. rt middle finger joint replacement Past Anesthesia/Blood Transfusion Reactions: No Reported Reaction Additional Past Anesthesia/Blood Transfusion Reaction / Comment(s): no blood transfusion Date of Last Stent Placement:: 05/09/23 Past Psychological History: No Psychological Hx Reported Smoking Status: Current some day smoker Past Alcohol Use History: None Reported Past Drug Use History: None Reported - Past Family History Mother Family Medical History: Blood Disorder Additional Family Medical History / Comment(s): parkinsons, blood disorder on coumadin for life Father Family Medical History: Coronary Artery Disease (CAD), Diabetes Mellitus, Myocardial Infarction (NV) General Exam Limitations: no limitations General appearance: alert, in no apparent distress Head exam: Present: normocephalic, other (3 cm superficial laceration present on left side of forehead with active bleeding. No tenderness to facial bones.) Eye exam: Present: normal appearance, PERRL, EOMI. Absent: periorbital swel ling, periorbital tenderness Pupils: Present: normal accommodation ENT exam: Present: normal exam, mucous membranes moist, TM's normal bilaterally Neck exam: Present: normal inspection. Absent: tenderness, meningismus, lymph adenopathy Respiratory exam: Present: normal lung sounds bilaterally. Absent: respiratory distress, wheezes, rales, rhonchi, stridor Cardiovascular Exam: Present: regular rate, normal rhythm, normal heart sounds. Absent: systolic murmur, diastolic murmur, rubs, gallop, clicks GI/Abdominal exam: Present: soft, normal bowel sounds, other (Diffuse contusions in multiple stages of healing across abdomen). Absent: distended, tenderness, guarding, rebound, rigid Extremities exam: Present: normal inspection, full ROM, normal capillary refill, other (Well-healing contusions present diffusely on upper extremities.). Absent: tenderness, pedal edema, joint swelling, calf tenderness Back exam: Present: full ROM, tenderness, paraspinal tenderness, other (4 x 4 centimeter contusion present on left side of thoracic portion of back. Diffuse left-sided paraspinal tenderness. Full strength and range of motion and sensation of upper extremities and lower extremities.). Absent: CVA tenderness (R), CVA tenderness (L) Neurological exam: Present: alert, oriented X3, CN II-XII intact Psychiatric exam: Present: normal affect, normal mood Skin exam: Present: warm, dry, intact, normal color. Absent: rash Course Vital Signs 11/17/23 19:11 Temperature 97.6 F Pulse Rate 111 H Respiratory 20 Rate Blood Pressure 137/82 O2 Sat by Pulse 97 Oximetry Procedures - Laceration Laceration #1 Consent Obtained: verbal consent Indication: laceration Site: face Size (cm): 3 Description: flap Depth: simple, single layer Pre-repair: wound explored, irrigated extensively, deep structures intact Patient Tolerated Procedure: well, no complications Additional Comments: Wound cleaned and skin adhesive applied. Bleeding was controlled and wound was dressed. Medical Decision Making - Medical Decision Making Was pt. sent in by a medical professional or institution ([facility] Earl, [employer]OC[employer] TECHNICIAN, urgent care, hospital, or long term...) When possible be specific @ -No Did you speak to anyone other than the patient for history (EMS, parent, family, police, friend...)? What history was obtained from this source @ -Patient's supplemented history Did you review nursing and triage notes (agree or disagree)? Why? @ -I reviewed and agree with nursing and triage notes Were old charts reviewed (outside hosp., previous admission, EMS record, old EKG, old radiological studies, urgent care reports/EKG's, long term records)? Report findings @ -No old charts were reviewed Differential Diagnosis (chest pain, altered mental status, abdominal pain women, abdominal pain men, vaginal bleeding, weakness, fever, dyspnea, syncope, headache, dizziness, GI bleed, back pain, seizure, CVA, palpatations, mental health, musculoskeletal)? @ -Differential Musculoskeletal Muscular strain, contusion, ligament sprain, intracranial bleed, fracture, arthritis, septic arthritis, bursitis, cellulitis, muscle spasm, nerve shruti oniel, DVT, arterial occlusion, herpes zoster, electrolyte abnormality, tumor.... This is not meant to be in all inclusive list EKG interpreted by me (3pts min.). @ -None X-rays interpreted by me (1pt min.). @ -None done CT interpreted by me (1pt min.). @ -CT head and neck was negative. CT of chest abdomen and pelvis reveals 2 fractures on left 11th rib, left 12th rib fracture, and L1 and L2 left transverse process fracture U/S interpreted by me (1pt. min.). @ -None done What testing was considered but not performed or refused? (CT, X-rays, U/S, labs)? Why? @ -None What meds were considered but not given or refused? Why? @ -None Did you discuss the management of the patient with other professionals (professionals i.e. , PA, AUTOCAD TECHNICIAN, lab, RT, psych nurse, forensic social worker, pit furnace melter, teacher, mail officer, bottle caser)? Give summary @ -No Was smoking cessation discussed for >3mins.? @ -No Was critical care preformed (if so, how long)? @ -No Were there social determinants of health that impacted care today? How? (Homelessness, low income, unemployed, alcoholism, drug addiction, transportati on, low edu. Level, literacy, decrease access to med. care, skilled nursing, rehab)? @ -No Was there de-escalation of care discussed even if they declined (Discuss DNR or withdrawal of care, Hospice)? DNR status @ -No What co-morbidities impacted this encounter? (DM, HTN, Smoking, COPD, CAD, Cancer, CVA, ARF, Chemo, Hep., AIDS, mental health diagnosis, sleep apnea, morbid obesity)? @ -None Was patient admitted / discharged? Hospital course, mention meds given and route, prescriptions, significant lab abnormalities, going to OR and other pertinent info. @ -Patient was discharged. Patient was seen and evaluated for back injury and head injury after 400 pound metal sheet fell onto back. Patient is on Effient. Denies loss of consciousness. Patient is neurovascularly intact. CT of chest/abdomen/pelvis revealed 2 fractures on left 11th rib, left 12th rib fracture, and L1 and L2 left transverse process fracture. CT of head and neck are negative for acute process. Patient's pain is well-controlled with [place]. Wounds cleaned and dressed. Laceration of forehead was irrigated and skin adhesive was applied. Discussed option of admission for pain control. Discussed diagnosis of rib fractures and transverse process fractures with patient in detail. Discussed risks including secondary pneumonia or atelectasis due to shallow breathing. Patient shows understanding of risks and complications and would like to be discharged at this time with close follow-up with his orthopedic doctor. Supportive care discussed in detail. Strict return/alarm symptoms discussed with patient and patient shows understanding and agrees to plan. Patient states he has [place] at home that he will take for pain. Incentive spirometer given. Tetanus updated. Undiagnosed new problem with uncertain prognosis? @ -No Drug Therapy requiring intensive monitoring for toxicity (Heparin, Nitro, Insulin, Cardizem)? @ -No Were any procedures done? @ -Laceration of scalp was irrigated and skin adhesive was applied Diagnosis/symptom? @ -Multiple left-sided closed rib fractures, multiple left-sided transverse process fractures, laceration of scalp Acute, or Chronic, or Acute on Chronic? @ -Acute Uncomplicated (without systemic symptoms) or Complicated (systemic symptoms)? @ -Uncomplicated Side effects of treatment? @ -No Exacerbation, Progression, or Severe Exacerbation? @ -No Poses a threat to life or bodily function? How? (Chest pain, USA, NV, pneumonia, PE, COPD, DKA, ARF, appy, cholecystitis, CVA, Diverticulitis, Homicidal, Suicidal, threat to staff... and all critical care pts) @ -No - Lab Data Result diagrams: 11/17/23 20:00 11/17/23 20:00 Lab Results 11/17/23 11/17/23 11/17/23 Range/Units 20:00 20:00 20:00 WBC 18.7 H (3.8-10.6) k/uL RBC 4.74 (4.30-5.90) m/uL Hgb 13.6 (13.0-17.5) gm/dL Hct 42.4 (39.0-53.0) % MCV 89.4 (80.0-100.0) fL MCH 28.7 (25.0-35.0) pg MCHC 32.1 (31.0-37.0) g/dL RDW 13.1 (11.5-15.5) % Plt Count 279 (150-450) k/uL MPV 7.9 Neutrophils % 84 % Lymphocytes % 10 % Monocytes % 5 % Eosinophils % 0 % Basophils % 0 % Neutrophils # 15.6 H (1.3-7.7) k/uL Lymphocytes # 1.9 (1.0-4.8) k/uL Monocytes # 1.0 (0-1.0) k/uL Eosinophils # 0.0 (0-0.7) k/uL Basophils # 0.0 (0-0.2) k/uL PT 10.2 (10.0-12.5) sec INR 0.9 (<1.2) APTT 22.1 (22.0-30.0) sec Sodium 134 L (137-145) mmol/L Potassium 4.8 (3.5-5.1) mmol/L Chloride 103 (98-107) mmol/L Carbon Dioxide 20 L (22-30) mmol/L Anion Gap 11 mmol/L BUN 38 H (9-20) mg/dL Creatinine 0.83 (0.66-1.25) mg/dL Est GFR (CKD-EPI)AfAm >90 (>60 ml/min/1.73 sqM) Est GFR (CKD-EPI)NonAf >90 (>60 ml/min/1.73 sqM) Glucose 235 H (74-99) mg/dL Calcium 9.4 (8.4-10.2) mg/dL Total Bilirubin 0.6 (0.2-1.3) mg/dL AST 31 (17-59) U/L ALT 56 H (4-49) U/L Alkaline Phosphatase 75 (38-126) U/L Total Protein 6.9 (6.3-8.2) g/dL Albumin 4.3 (3.5-5.0) g/dL Disposition Clinical Impression: Ribs, multiple fractures, Lumbar transverse process fracture Disposition: HOME SELF-CARE Condition: Stable Instructions (If sedation given, give patient instructions): Rib Fracture (ED), Thoracolumbar Fracture (ED) Additional Instructions: Please follow-up with Ortho as soon as possible. Please return to the Emergency Department if symptoms worsen or any other concerns. Is patient prescribed a controlled substance at d/c from ED?: No Referrals: Valeriano Arteaga [Primary Care Provider] - 1-2 days Time of Disposition: 22:35
[2023-11-17 20:29] LABS: INR 0.9 (<1.2); Partial Thromboplastin Time 22.1 sec (22.0-30.0); Prothrombin Time 10.2 sec (10.0-12.5)
--- NOTE | 2023-11-17 21:02 | CT ---
EXAMINATION TYPE: CT brain cspine wo con DATE OF EXAM: 11/17/2023 HISTORY: r/o bleed s/p trauma on thinners. CT DLP: Combined DLP of 3471.7 mGycm. Automated Exposure Control for Dose Reduction was Utilized. TECHNIQUE: CT scan of the head and cervical spine are performed without contrast. COMPARISON: None FINDINGS: There is subcutaneous soft tissue swelling over the left orbit. There is no skull fracture or intracranial hemorrhage. No mass or mass effect. No definite new attenu ation defect. Extra-axial compartment is unremarkable. Orbits are intact. Paranasal sinuses, middle e ar cavities, and and mastoid sinus air are clear. There is no acute cervical spine fracture or malalignment. Marked cervical spondylosis changes are se en at the C5-6 and C6-7 levels. IMPRESSION: No acute process.
--- NOTE | 2023-11-17 21:19 | CT ---
EXAMINATION TYPE: CT ChestAbdPelvis w con 11/17/2023 History: r/o bleed s/p trauma on thinners. Technique: CT scan of the thorax, abdomen and pelvis is performed with IV Contrast, patient injected with 100 mL of Isovue 300. CT DLP: Combined DLP of 3471.7 mGycm. Automated Exposure Control for Dose Reduction was Utilized. Comparison: CT 09/12/2023 Findings: SKELETAL STRUCTURES: Left 11th rib shows two fracture sites: a nondisplaced fracture posteriorly (axial image 57) and a mi ldly displaced fracture laterally (axial image 74). Nondisplaced left 12th rib fracture posteriorly (axial image 63). There is a displaced L1 left transverse process fracture (axial image 62). Displaced L2 left transverse process fracture (axial image 69). No other fractures. CHEST: Airways are clear. No acute pulmonary process. No acute aortic findings. Aortic ectasia is noted with tortuosity and the ascending aorta measures up to 4.3 cm caliber. There are coronary calcifications and coronary stents. No cardiomegaly or pericar dial effusion. No mediastinal fluid or gas. No hilar or mediastinal adenopathy. LIVER/GB: No significant abnormality is appreciated. PANCREAS: No significant abnormality is seen. SPLEEN: No significant abnormality is seen. ADRENALS: Stable bilateral adrenal nodules. KIDNEYS: No significant abnormality is seen. BOWEL: No significant abnormality is seen. PERITONEAL CAVITY: No fluid or pneumoperitoneum. GENITAL ORGANS: No gross abnormality seen. LYMPH NODES: No greater than 1cm abdominal or pelvic lymph nodes are appreciated. VASCULATURE: No acute findings. Infrarenal 4 cm abdominal aortic aneurysm noted. IMPRESSION: Acute findings include left 11th rib fractures (two fractures of same rib), left 12th rib fracture, L 1 and L2 left transverse process fractures. Other findings as noted.
[2023-11-17] MEDS: HYDROcodone/APAP 7.5-325MG 1 EACH TAB PO ONE (21:52)
[2023-11-17] MEDS: DIPH,PERTUS(ACELL)TETVAC-LF 0.5 ML VIAL IM ONE (22:42)
[2023-11-17 22:45] VITALS: BP 131/90; PULSE 104; RESP 18
== END 2023-11-17 22:46 | disposition home or self-care (01) ==
LOC: EC 18:54
DX: S32.018A Other fracture of first lumbar vertebra, initial encounter for closed fracture (principal); S32.028A Other fracture of second lumbar vertebra, initial encounter for closed fracture; S22.42XA Multiple fractures of ribs, left side, initial encounter for closed fracture; S01.81XA Laceration without foreign body of other part of head, initial encounter; F17.200 Nicotine dependence, unspecified, uncomplicated; Z23 Encounter for immunization; Z91.030 Bee allergy status; W20.8XXA Other cause of strike by thrown, projected or falling object, initial encounter; Y93.89 Activity, other specified
CPT/HCPCS: 99284; 90471; 12013; 36415; 80053; 85025; 85610; 85730; 72125; 70450; 71260; 74177; 90715; Q9967

== ENCOUNTER 2023-12-12 14:42 | Emergency (ER) | payer OTHER ==
[2023-12-12 14:49] VITALS: RESP 18; TEMP 98.3
--- NOTE | 2023-12-12 14:58 | ED ---
Chest Pain HPI - General Chief Complaint: Chest Pain Stated Complaint: Chest pain Time Seen by Provider: 12/12/23 14:52 Source: patient, RN notes reviewed, old records reviewed Mode of arrival: wheelchair Limitations: no limitations - History of Present Illness Initial Comments: This is a 63-year-old male to the ER for evaluation of chest pain history of stent placement 6 months ago as well as about a year ago. Patient comes in with significant chest pain that started last night with severe pressure on his chest and shortness of breath that did go away and patient symptoms returned today, patient presents to the ER with persistent chest pain MD Complaint: chest pain -: days(s) Onset: during rest Pain Location: substernal, left chest Pain Radiation: LUE Severity: moderate Severity scale (1-10): 4 Quality: aching, heaviness Consistency: constant Improves With: nothing Worsens With: nothing Anginal Symptoms: dyspnea, sense of impending doom Other Symptoms: palpitations Treatments Prior to Arrival: none - Related Data Home Medications Medication Instructions Recorded Confirmed Hydrocodone/Acetaminophen [[place] 1 tab PO TID PRN 03/03/16 12/12/23 7.5-325] Aspirin [Adult Low Dose Aspirin EC] 81 mg PO HS 03/28/17 12/12/23 Ascorbic Acid [Vitamin C] 1,000 mg PO BID 08/06/22 12/12/23 Ezetimibe [Zetia] 10 mg PO HS 08/06/22 12/12/23 Ibuprofen 600 mg PO BID 08/06/22 12/12/23 Montelukast Sodium [Singulair] 10 mg PO HS 08/06/22 12/12/23 Tiotropium 2.5 Mcg/Puff [Spiriva 2 puff INHALATION RT-DAILY PRN 08/06/22 12/12/23 Respimat 2.5 Mcg] Turmeric Root Extract [Turmeric] 500 mg PO HS 08/06/22 12/12/23 Zinc Gluconate [Zinc] 50 mg PO HS 08/06/22 12/12/23 diphenhydrAMINE [Benadryl] 50 mg PO HS 08/06/22 12/12/23 Isosorbide Mononitrate [Isosorbide 1 dose PO DIRECTED 08/17/22 12/12/23 Mononitrate ER] Acetaminophen [Tylenol Arthritis] 1,300 mg PO HS 05/05/23 12/12/23 Glucosam/Suhail-Msm1/C/Edgar/Bosw 1 tab PO BID 05/05/23 12/12/23 [Dnvajyoryig-Upchnqmnhpu-LIN Tb] Nortriptyline HCl [Pamelor] 75 mg PO HS 05/05/23 12/12/23 [place]-3 Acid Ethyl Esters [Lovaza] 1 gm PO BID 05/05/23 12/12/23 Vitamin E (Dl,Tocopheryl Acet) 400 unit PO DAILY 05/05/23 12/12/23 [Vitamin E (400 Iu = 180 mg)] predniSONE [Deltasone] See Taper PO DAILY 11/11/23 12/12/23 Albuterol Sulfate [Albuterol 2 puff INHALATION RT-TID PRN 12/12/23 12/12/23 Sulfate Hfa] Amoxic-Pot Clav 875-125Mg 1 tab PO Q12HR 12/12/23 12/12/23 [Augmentin 875-125] Budesonide-Formot 160-4.5 Mcg 2 puff INHALATION RT-BID 12/12/23 12/12/23 [Symbicort 160-4.5 Mcg Inhaler] Cholecalciferol [Vitamin D3 (25 50 mcg PO DAILY 12/12/23 12/12/23 Mcg = 1000 Iu)] Cyanocobalamin (Vitamin B-12) 5,000 mcg PO DAILY 12/12/23 12/12/23 [Vitamin B-12] Evolocumab [Repatha Sureclick] 140 mg SQ Q14D 12/12/23 12/12/23 Fexofenadine HCl 180 mg PO DAILY PRN 12/12/23 12/12/23 Magnesium Oxide [Magnesium] 500 mg PO DAILY 12/12/23 12/12/23 Multivit-Min/FA/Lycopen/Lutein 1 tab PO DAILY 12/12/23 12/12/23 [Centrum Silver Tablet] Triamcinolone Acetonide [Nasacort] 2 spray EA NOSTRIL HS PRN 12/12/23 12/12/23 amLODIPine [Norvasc] 5 mg PO HS 12/12/23 12/12/23 Previous Rx's Medication Instructions Recorded Prasugrel [Effient] 10 mg PO DAILY #90 tablet 08/10/22 Allergies Allergy/AdvReac Type Severity Reaction Status Date / Time venom-honey bee Allergy Swelling Verified 12/12/23 15:56 [bee venom (honey bee)] Review of Systems ROS Statement: Those systems with pertinent positive or pertinent negative responses have been documented in the HPI. ROS Other: All systems not noted in ROS Statement are negative. EKG Findings - EKG Comments: EKG Findings:: EKG Is sinus 68 DE 145 QRS 89 QTc 370 - EKG Results: EKG: interpreted by YANA Past Medical History Past Medical History: Asthma, Coronary Artery Disease (CAD), Chest Pain / Angina, Hyperlipidemia, Hypertension, Osteoarthritis (OA), Seizure Disorder Additional Past Medical History / Comment(s): seizure 1997 post closed head injury, no meds now. Allergy induced asthma, chest pain on exertion. SINUS PROBLEMS. cough since he has been on inhalers. scattered bruises History of Any Multi-Drug Resistant Organisms: None Reported Past Surgical History: Heart Catheterization With Stent, Hernia Repair, Orthopedic Surgery Additional Past Surgical History / Comment(s): vasectomy, desire carpal tunnel, a rthroscopy desire knees, tendon repair desire elbows, bone spur removed from left great toe, arthroscopy left shoulder x 2, ganglion cyst left wrist. RT SHOULDER SX, BILAT ING. HERNIA SX,x3 COLONOSCOPY, sinus surgery, rt thumb joint fusion, then had bone graft due to poor healing. rt middle finger joint replacement Past Anesthesia/Blood Transfusion Reactions: No Reported Reaction Additional Past Anesthesia/Blood Transfusion Reaction / Comment(s): no blood transfusion Date of Last Stent Placement:: 05/09/23 Past Psychological History: No Psychological Hx Reported Smoking Status: Current some day smoker Past Alcohol Use History: None Reported Past Drug Use History: None Reported - Past Family History Mother Family Medical History: Blood Disorder Additional Family Medical History / Comment(s): parkinsons, blood disorder on coumadin for life Father Family Medical History: Coronary Artery Disease (CAD), Diabetes Mellitus, Myocardial Infarction (CA) General Exam General appearance: alert, in no apparent distress Head exam: Present: atraumatic, normocephalic, normal inspection Eye exam: Present: normal appearance, PERRL, EOMI. Absent: scleral icterus, conjunctival injection, periorbital swelling ENT exam: Present: normal exam, mucous membranes moist Neck exam: Present: normal inspection. Absent: tenderness, meningismus, lymphadenopathy Respiratory exam: Present: normal lung sounds bilaterally. Absent: respiratory distress, wheezes, rales, rhonchi, stridor Cardiovascular Exam: Present: regular rate, normal rhythm, normal heart sounds. Absent: systolic murmur, diastolic murmur, rubs, gallop, clicks GI/Abdominal exam: Present: soft, normal bowel sounds. Absent: distended, tenderness, guarding, rebound, rigid Extremities exam: Present: normal inspection, full ROM, normal capillary refill. Absent: tenderness, pedal edema, joint swelling, calf tenderness Back exam: Present: normal inspection Neurological exam: Present: alert, oriented X3, CN II-XII intact Psychiatric exam: Present: normal affect, normal mood Skin exam: Present: warm, dry, intact, normal color. Absent: rash Course Vital Signs 12/12/23 12/12/23 14:45 17:51 Temperature 98.3 F Pulse Rate 95 98 Respiratory 18 18 Rate Blood Pressure 145/87 150/96 O2 Sat by Pulse 98 97 Oximetry - Reevaluation(s) Reevaluation #1: 12/12/23 15:45 Medical records reviewed Reevaluation #2: 12/12/23 17:43 Patient still with chest pain although significantly diminished compared to arrival Reevaluation #3: 12/12/23 17:43 Patient informed of results questions answered Reevaluation #4: Was pt. sent in by a medical professional or institution (, PA, MANAGER FLOAT, urgent care, hospital, or alf...) When possible be specific @ -no Did you speak to anyone other than the patient for history (EMS, parent, family, police, friend...)? What history was obtained from this source @ -no Did you review nursing and triage notes (agree or disagree)? Why? @ -agree Are old charts reviewed (outside hosp., previous admission, EMS record, old EKG, old radiological studies, urgent care reports/EKG's, alf records)? Report findings @ -yes Differential Diagnosis (chest pain, altered mental status, abdominal pain women, abdominal pain men, vaginal bleeding, weakness, fever, dyspnea, syncope, headache, dizziness, GI bleed, back pain, seizure, CVA, palpatations, mental health, musculoskeletal)? @ -prior EKG interpreted by me (3pts min.). @ -yes X-rays interpreted by me (1pt min.). @ -yes negative for acute disease CT interpreted by me (1pt min.). @ -no U/S interpreted by me (1pt. min.). @ -no What testing was considered but not performed or refused? (CT, X-rays, U/S, labs)? Why? @ -none What meds were considered but not given or refused? Why? @ -none Did you discuss the management of the patient with other professionals (professionals i.e. , PA, MANAGER FLOAT, lab, RT, psych nurse, social services director, engineering professor, teacher, community service officer coordinator, case resolution specialist)? Give summary @ -no Was smoking cessation discussed for >3mins.? @ -no Were there social determinants of health that impacted care today? How? (Homelessness, low income, unemployed, alcoholism, drug addiction, transportation, low edu. Level, literacy, decrease access to med. care, skilled nursing, rehab)? @ -none Was there de-escalation of care discussed even if they declined (Discuss DNR or withdrawal of care, Hospice)? DNR status @ -no What co-morbidities impacted this encounter? (DM, HTN, Smoking, COPD, CAD, Cancer, CVA, ARF, Chemo, Hep., AIDS, mental health diagnosis, sleep apnea, morbid obesity)? @ -none Was patient admitted / discharged? Hospital course, mention meds given and route, prescriptions, significant lab abnormalities, going to OR and other pertinent info. @ - 63 male with long history of acute coronary syndrome coming in for chest pain today. Patient's chest pain is unresolved here in the ER but does not want further cardiac evaluation. Patient will follow-up with control system manager as an outpatient. Discharge Was critical care preformed (if so, how long)? @ -no Undiagnosed new problem with uncertain prognosis? @ -no Drug Therapy requiring intensive monitoring for toxicity (Heparin, Nitro, Insulin, Cardizem)? @ -no Were any procedures done? @ -no Diagnosis/symptom? @ -Chest pain Acute, or Chronic, or Acute on Chronic? @ -Acute Uncomplicated (without systemic symptoms) or Complicated (systemic symptoms)? @ -Complicated Side effects of treatment? @ -no Exacerbation, Progression, or Severe Exacerbation? @ -exacerbation Poses a threat to life or bodily function? How? (Chest pain, USA, CA, pneumonia, PE, COPD, DKA, ARF, appy, cholecystitis, CVA, Diverticulitis, Homicidal, Suicidal, threat to staff... and all critical care pts) @ -yes with chest pain Reevaluation #5: Differential Chest Pain: Stable Angina, Unstable Angina, STEMI, NSTEMI Aortic Dissection, Pneumothorax, Musculoskeletal, Esophageal Spasm GERD, Cholecystitis, Pancreatitis, Zoster, this is not meant to be an all-inclusive list. Chest Pain MDM - MDM 63 male with long history of acute coronary syndrome coming in for chest pain today. Patient's chest pain is unresolved here in the ER but does not want further cardiac evaluation. Patient will follow-up with control system manager as an outpatient. Disposition Clinical Impression: Chest pain, Atypical chest pain Disposition: HOME SELF-CARE Condition: Good Instructions (If sedation given, give patient instructions): Chest Pain (ED) Is patient prescribed a controlled substance at d/c from ED?: No Referrals: Valeriano Arteaga [Primary Care Provider] - 1-2 days Time of Disposition: 17:40
[2023-12-12 15:39] LABS: Basophils % (A) 0 %; Eosinophils % (A) 0 %; HCT 42.3 % (39.0-53.0); HGB 13.2 gm/dL (13.0-17.5); Lymphocytes # (A) 1.2 k/uL (1.0-4.8); Lymphocytes % (A) 13 %; MCH 28.9 pg (25.0-35.0); MCHC 31.3 g/dL (31.0-37.0); MCV 92.4 fL (80.0-100.0); Mean Platelet Volume 8.2; Monocytes # (A) 0.3 k/uL (0-1.0); Monocytes % (A) 3 %; Neutrophils # (A) 7.4 k/uL (1.3-7.7); Neutrophils % (A) 83 %; Platelet Count 303 k/uL (150-450); RBC 4.57 m/uL (4.30-5.90); RDW 15.3 % (11.5-15.5)
--- NOTE | 2023-12-12 15:45 | XR ---
EXAMINATION TYPE: XR chest 2V DATE OF EXAM: 12/12/2023 3:30 PM CLINICAL INDICATION:Male, 63 years old with history of Chest Pain; [facility] COMPARISON: Chest radiographs from 09/12/2023 TECHNIQUE: XR chest 2V Frontal and lateral views of the chest. FINDINGS: Lungs/Pleura: There is no evidence of pleural effusion, focal consolidation, or pneumothorax. Pulmonary vascularity: Unremarkable. Heart/mediastinum: Cardiomediastinal silhouette is unremarkable. Musculoskeletal: No acute osseous pathology. IMPRESSION: No acute cardiopulmonary disease/process.
[2023-12-12 15:50] LABS: INR 0.9 (<1.2); Partial Thromboplastin Time 23.1 sec (22.0-30.0); Prothrombin Time 10.3 sec (10.0-12.5)
[2023-12-12 15:51] LABS: ALT 35 U/L (4-49); AST 25 U/L (17-59); African American GFR (CKD) >90 (>60 ml/min/1.73 sqM); Alkaline Phosphatase 145 U/L (38-126); Anion Gap 6 mmol/L; Blood Urea Nitrogen 25 mg/dL (9-20); Calcium 9.2 mg/dL (8.4-10.2); Carbon Dioxide 24 mmol/L (22-30); Chloride 105 mmol/L (98-107); Glucose 275 mg/dL (74-99); Lipase 134 U/L (23-300); Magnesium 2.2 mg/dL (1.6-2.3); Non-African American GFR(CKD) >90 (>60 ml/min/1.73 sqM); Potassium 4.8 mmol/L (3.5-5.1); Sodium 135 mmol/L (137-145); Total Bilirubin 0.5 mg/dL (0.2-1.3); Total Protein 6.4 g/dL (6.3-8.2)
[2023-12-12 16:00] LABS: NT-Pro-B-Type Natriuretic Pept 79 pg/mL
[2023-12-12 17:53] VITALS: BP 150/96; PULSE 98
== END 2023-12-12 17:53 | disposition home or self-care (01) ==
LOC: EC 14:42
DX: R07.89 Other chest pain (principal); Z91.030 Bee allergy status
CPT/HCPCS: 36415; 71046; 80053; 83690; 83735; 83880; 84484; 85025; 85610; 85730; 93005; 99285

== ENCOUNTER → 2023-12-12 | Outpatient (CLI) | payer OTHER ==
--- NOTE | 2023-12-13 10:26 | MR ---
EXAMINATION TYPE: MR lumbar spine wo con DATE OF EXAM: 12/12/2023 12:19 PM COMPARISON: NONE HISTORY: Pain Multiplanar, MultiSpin echo imaging of the lumbar spine was performed. L1-L2: Normal disc appearance without desiccation. No herniation, protrusion or disc bulging. No ca nal stenosis is present. Foramina are patent bilaterally. L2-L3: Normal disc appearance without desiccation. No herniation, protrusion or disc bulging. No ca nal stenosis is present. Foramina are patent bilaterally. L3-L4: Normal disc appearance without desiccation. No herniation, protrusion or disc bulging. No ca nal stenosis is present. Foramina are patent bilaterally. L4-L5: Mild disc desiccation noted with posterior disc bulge. No evidence for central stenosis or lat eral recess stenosis. Facet joint arthropathy resulting in mild bilateral foraminal encroachment. L5-S1: Vacuum disc noted. Grade 1 anterolisthesis L5 on S1 Measuring 6 mm. No evidence for central st enosis. Moderate bilateral foraminal encroachment. Lumbar segments are intact. No paraspinal masses are identified. Conus medullaris has a normal appe arance. IMPRESSION: 1. Generative disc disease as discussed. 2. Grade 1 anterolisthesis L5 on S1.
== END | disposition home or self-care (01) ==
LOC: RADMRIMAIN 11:18
PROVIDERS: ATTEND Orthopaedic Surgery Orthopaedic Surgery of the Spine
DX: M43.17 Spondylolisthesis, lumbosacral region (principal); M51.36 Other intervertebral disc degeneration, lumbar region; M48.062 Spinal stenosis, lumbar region with neurogenic claudication
CPT/HCPCS: 72148

== ENCOUNTER 2024-04-07 13:08 | Emergency (ER) | payer OTHER ==
[2024-04-07 13:36] VITALS: RESP 18
[2024-04-07] MEDS: LIDOCAINE 1% INJ 10MG/ML (20 ML MDV) SQ ONE (13:52)
--- NOTE | 2024-04-07 13:52 | ED ---
Wound/Laceration HPI - General Chief Complaint: Wound/Laceration Stated Complaint: L Leg Infection Time Seen by Provider: 04/07/24 13:23 Source: patient, family, RN notes reviewed Mode of arrival: ambulatory - History of Present Illness Initial Comments: 63 year old male presents to the emergency department with chief complaint of left leg laceration. He states that he was helping a friend move a deer rack into his truck and it spun around and punctured his leg. He states that he is taking blood thinners and has lost only a marginal amount of blood. He denies impaired ROM, paresthesia, and debris/foreign body within laceration. He states that he has not received a Tdap >5 years. Extremity Location: Left: Lower Leg Place: outdoors Patient Tetanus UTD: No Context: accidental Treatments Prior to Arrival: bandage - Related Data Home Medications Medication Instructions Recorded Confirmed Hydrocodone/Acetaminophen [[place] 1 tab PO TID PRN 03/03/16 12/12/23 7.5-325] Aspirin [Adult Low Dose Aspirin EC] 81 mg PO HS 03/28/17 12/12/23 Ascorbic Acid [Vitamin C] 1,000 mg PO BID 08/06/22 12/12/23 Ezetimibe [Zetia] 10 mg PO HS 08/06/22 12/12/23 Ibuprofen 600 mg PO BID 08/06/22 12/12/23 Montelukast Sodium [Singulair] 10 mg PO HS 08/06/22 12/12/23 Tiotropium 2.5 Mcg/Puff [Spiriva 2 puff INHALATION RT-DAILY PRN 08/06/22 12/12/23 Respimat 2.5 Mcg] Turmeric Root Extract [Turmeric] 500 mg PO HS 08/06/22 12/12/23 Zinc Gluconate [Zinc] 50 mg PO HS 08/06/22 12/12/23 diphenhydrAMINE [Benadryl] 50 mg PO HS 08/06/22 12/12/23 Isosorbide Mononitrate [Isosorbide 1 dose PO DIRECTED 08/17/22 12/12/23 Mononitrate ER] Acetaminophen [Tylenol Arthritis] 1,300 mg PO HS 05/05/23 12/12/23 Glucosam/Suhail-Msm1/C/[place]/Bosw 1 tab PO BID 05/05/23 12/12/23 [Xtcjukmwcue-Najnllmsqns-MVX Tb] Nortriptyline HCl [Pamelor] 75 mg PO HS 05/05/23 12/12/23 [place]-3 Acid Ethyl Esters [Lovaza] 1 gm PO BID 05/05/23 12/12/23 Vitamin E (Dl,Tocopheryl Acet) 400 unit PO DAILY 05/05/23 12/12/23 [Vitamin E (400 Iu = 180 mg)] predniSONE [Deltasone] See Taper PO DAILY 11/11/23 12/12/23 Albuterol Sulfate [Albuterol 2 puff INHALATION RT-TID PRN 12/12/23 12/12/23 Sulfate Hfa] Amoxic-Pot Clav 875-125Mg 1 tab PO Q12HR 12/12/23 12/12/23 [Augmentin 875-125] Budesonide-Formot 160-4.5 Mcg 2 puff INHALATION RT-BID 12/12/23 12/12/23 [Symbicort 160-4.5 Mcg Inhaler] Cholecalciferol [Vitamin D3 (25 50 mcg PO DAILY 12/12/23 12/12/23 Mcg = 1000 Iu)] Cyanocobalamin (Vitamin B-12) 5,000 mcg PO DAILY 12/12/23 12/12/23 [Vitamin B-12] Evolocumab [Repatha Sureclick] 140 mg SQ Q14D 12/12/23 12/12/23 Fexofenadine HCl 180 mg PO DAILY PRN 12/12/23 12/12/23 Magnesium Oxide [Magnesium] 500 mg PO DAILY 12/12/23 12/12/23 Multivit-Min/FA/Lycopen/Lutein 1 tab PO DAILY 12/12/23 12/12/23 [Centrum Silver Tablet] Triamcinolone Acetonide [Nasacort] 2 spray EA NOSTRIL HS PRN 12/12/23 12/12/23 amLODIPine [Norvasc] 5 mg PO HS 12/12/23 12/12/23 Previous Rx's Medication Instructions Recorded Prasugrel [Effient] 10 mg PO DAILY #90 tablet 08/10/22 Cephalexin [Keflex] 500 mg PO Q6HR #28 cap 04/07/24 Allergies Allergy/AdvReac Type Severity Reaction Status Date / Time venom-honey bee Allergy Swelling Verified 04/07/24 13:36 [bee venom (honey bee)] Review of Systems ROS Statement: Those systems with pertinent positive or pertinent negative responses have been documented in the HPI. ROS Other: All systems not noted in ROS Statement are negative. Past Medical History Past Medical History: Asthma, Coronary Artery Disease (CAD), Chest Pain / Angina, Hyperlipidemia, Hypertension, Osteoarthritis (OA), Seizure Disorder Additional Past Medical History / Comment(s): seizure 1997 post closed head injury, no meds now. Allergy induced asthma, chest pain on exertion. SINUS PROBLEMS. cough since he has been on inhalers. scattered bruises History of Any Multi-Drug Resistant Organisms: None Reported Past Surgical History: Heart Catheterization With Stent, Hernia Repair, Orthopedic Surgery Additional Past Surgical History / Comment(s): vasectomy, desire carpal tunnel, arthroscopy desire knees, tendon repair desire elbows, bone spur removed from left great toe, arthroscopy left shoulder x 2, ganglion cyst left wrist. RT SHOULDER SX, BILAT ING. HERNIA SX,x3 COLONOSCOPY, sinus surgery, rt thumb joint fusion, then had bone graft due to poor healing. rt middle finger joint replacement. right wrist fusion 2023 Past Anesthesia/Blood Transfusion Reactions: No Reported Reaction Additional Past Anesthesia/Blood Transfusion Reaction / Comment(s): no blood transfusion Date of Last Stent Placement:: 05/09/23 Past Psychological History: No Psychological Hx Reported Smoking Status: Current some day smoker Past Alcohol Use History: None Reported Past Drug Use History: Marijuana - Past Family History Mother Family Medical History: Blood Disorder Additional Family Medical History / Comment(s): parkinsons, blood disorder on coumadin for life Father Family Medical History: Coronary Artery Disease (CAD), Diabetes Mellitus, Myocardial Infarction ([place]) General Exam General appearance: alert, in no apparent distress Head exam: Present: atraumatic, normocephalic, normal inspection Eye exam: Present: normal appearance, PERRL, EOMI. Absent: scleral icterus, conjunctival injection, periorbital swelling ENT exam: Present: normal exam, mucous membranes moist Neck exam: Present: normal inspection. Absent: tenderness, meningismus, lymphadenopathy Respiratory exam: Present: normal lung sounds bilaterally. Absent: respiratory distress, wheezes, rales, rhonchi, stridor Cardiovascular Exam: Present: regular rate, normal rhythm, normal heart sounds. Absent: systolic murmur, diastolic murmur, rubs, gallop, clicks GI/Abdominal exam: Present: soft, normal bowel sounds. Absent: distended, tend erness, guarding, rebound, rigid Extremities exam: Present: normal inspection, full ROM, normal capillary refill. Absent: tenderness, pedal edema, joint swelling, calf tenderness Left Lower Leg exam: Present: full ROM, laceration, erythema Back exam: Present: normal inspection Neurological exam: Present: alert, oriented X3, CN II-XII intact Psychiatric exam: Present: normal affect, normal mood Skin exam: Present: warm, dry, intact, normal color. Absent: rash Course Vital Signs 04/07/24 13:29 Temperature 97.8 F Pulse Rate 93 Respiratory 18 Rate Blood Pressure 132/82 O2 Sat by Pulse 97 Oximetry Procedures - Laceration Laceration #1 Consent Obtained: verbal consent Indication: laceration Site: lower extremity Size (cm): 3 Description: flap, irregular Depth: simple, single layer Anesthetic Used: lidocaine 1% Anesthesia Technique: local infiltration Amount (mls): 3 Pre-repair: wound explored Type of Sutures: nylon Size of Sutures: 4-0 Number of Sutures: 5 Technique: simple, interrupted Patient Tolerated Procedure: well, no complications Medical Decision Making - Medical Decision Making Was pt. sent in by a medical professional or institution (MONICA Earl, COPING MACHINE ASSEMBLER, urgent care, hospital, or fci...) When possible be specific @ -No Did you speak to anyone other than the patient for history (EMS, parent, family, police, friend...)? What history was obtained from this source @ -No Did you review nursing and triage notes (agree or disagree)? Why? @ -I reviewed and agree with nursing and triage notes Were old charts reviewed (outside hosp., previous admission, EMS record, old EKG, old radiological studies, urgent care reports/EKG's, fci records)? Report findings @ -No old charts were reviewed Differential Diagnosis (chest pain, altered mental status, abdominal pain women, abdominal pain men, vaginal bleeding, weakness, fever, dyspnea, syncope, headache, dizziness, GI bleed, back pain, seizure, CVA, palpatations, mental health, musculoskeletal)? @ -Leg wound, leg laceration EKG interpreted by me (3pts min.). @ -None X-rays interpreted by me (1pt min.). @ -None done CT interpreted by me (1pt min.). @ -None done U/S interpreted by me (1pt. min.). @ -None done What testing was considered but not performed or refused? (CT, X-rays, U/S, labs)? Why? @ -None What meds were considered but not given or refused? Why? @ -None Did you discuss the management of the patient with other professionals (professionals i.e. , PA, COPING MACHINE ASSEMBLER, lab, RT, psych nurse, psych social worker, hotel recreational facilities manager, teacher, port patrol officer, caseworker intake)? Give summary @ -No Was smoking cessation discussed for >3mins.? @ -No Was critical care preformed (if so, how long)? @ -No Were there social determinants of health that impacted care today? How? (Homelessness, low income, unemployed, alcoholism, drug addiction, transportation, low edu. Level, literacy, decrease access to med. care, fdc, rehab)? @ -No Was there de-escalation of care discussed even if they declined (Discuss DNR or withdrawal of care, Hospice)? DNR status @ -No What co-morbidities impacted this encounter? (DM, HTN, Smoking, COPD, CAD, Cancer, CVA, ARF, Chemo, Hep., AIDS, mental health diagnosis, sleep apnea, morbid obesity)? @ -None Was patient admitted / discharged? Hospital course, mention meds given and route, prescriptions, significant lab abnormalities, going to OR and other pertinent info. @ -Discharged patient presented after a left leg laceration tetanus updated patient discharged on antibiotics given lower extremity wound caused by your antler. Patient did have sutures placed wound care instructions provided Undiagnosed new problem with uncertain prognosis? @ -No Drug Therapy requiring intensive monitoring for toxicity (Heparin, Nitro, Insulin, Cardizem)? @ -No Were any procedures done? @ -No Diagnosis/symptom? @ -Left leg laceration Acute, or Chronic, or Acute on Chronic? @ -Acute Uncomplicated (without systemic symptoms) or Complicated (systemic symptoms)? @ -Uncomplicated Side effects of treatment? @ -No Exacerbation, Progression, or Severe Exacerbation? @ -No Poses a threat to life or bodily function? How? (Chest pain, USA, [place], pneumonia, PE, COPD, DKA, ARF, appy, cholecystitis, CVA, Diverticulitis, Homicidal, Suicidal, threat to staff... and all critical care pts) @ -No Disposition Clinical Impression: Laceration of left leg Disposition: HOME SELF-CARE Condition: Stable Instructions (If sedation given, give patient instructions): Laceration (ED) Additional Instructions: Have sutures removed in 10 to 14 days. Please return to the Emergency Department if symptoms worsen or any other concerns. Prescriptions: Cephalexin [Keflex] 500 mg PO Q6HR #28 cap Is patient prescribed a controlled substance at d/c from ED?: No Referrals: Valeriano Arteaga [Primary Care Provider] - 1-2 days Time of Disposition: 14:08
[2024-04-07] MEDS: BACITRACIN OINT 1 EACH PACKET TOPICAL ONE (13:53)
[2024-04-07] MEDS: DIPH,PERTUS(ACELL)TETVAC-LF 0.5 ML VIAL IM ONE (14:24)
[2024-04-07 14:47] VITALS: BP 135/79; PULSE 91; TEMP 97.9
== END 2024-04-07 14:47 | disposition home or self-care (01) ==
LOC: EC 13:08
CPT/HCPCS: 12002; 90471; 90715; 99282

== ENCOUNTER → 2024-06-08 | Outpatient (CLI) | payer OTHER ==
--- NOTE | 2024-06-08 10:41 | MR ---
EXAMINATION TYPE: MR shoulder LT wo con DATE OF EXAM: 06/08/2024 6:40 AM COMPARISON: None. CLINICAL INDICATION: Male, 63 years old with history of M75.122 COMPLETE ROTATOR CUFF TEAR OR RUPTURE , Lt shoulder pain IV Contrast: cc (None if empty) TECHNIQUE: Multiplanar, multisequence imaging of the right shoulder is performed without contrast. FINDINGS: There appears to be widening of the AC joint question prior AC joint separation or possibly postsurgi brown change. There is moderate osteoarthritic change of the glenohumeral joint with superior subluxati on of the humerus. There is thinning of the articular cartilage. There is edema in the inferior bony glenoid. There is an extensive tear of the posterior, superior and anterior cartilaginous labrum cons istent with a superior SLAP injury. The biceps anchor is intact and the biceps tendon is normal in si gnal intensity and position within the bicipital groove. There large subchondral cysts in the humeral head. There are multiple tears of the supraspinatus and infraspinatus tendons without retraction. Th ere is some acromial bursitis. There are multiple cysts inferior to the coracoid process possibly (representing possibly indicating ganglion cysts are apparently renal cysts. IMPRESSION: 1. Abnormal appearing AC joint described above. 2. Moderate osteoarthritic change of the glenohumeral joint. 3. Intrasubstance tears of the infraspinatus and supraspinatus tendons without retraction. 4. Subacromial bursitis. 5. extensive SLAP injury of the cartilaginous labrum. 6. Edema in the inferior bony glenoid. [facility], , 06/08/2024 10:38 AM
== END | disposition home or self-care (01) ==
LOC: RADMRIMAIN 06:01
PROVIDERS: ATTEND Orthopaedic Surgery
DX: M19.012 Primary osteoarthritis, left shoulder (principal); M75.122 Complete rotator cuff tear or rupture of left shoulder, not specified as traumatic; M75.42 Impingement syndrome of left shoulder; M75.52 Bursitis of left shoulder; R60.9 Edema, unspecified